=== PATIENT | female | born 1935 | race Caucasian/White ===

== ENCOUNTER 2021-02-28 20:35 | Emergency (ER) | payer MEDICARE ==
[2021-02-28 22:35] LABS: HEMOGLOBIN 13.7 gm/dl (12.3-15.3); RED BLOOD COUNT 4.12 M/UL (4.00-5.10); WHITE BLOOD COUNT 13.2 K/UL (4.5-11.0)
[2021-02-28] MEDS ORDERED: CEPHALEXIN500 M1 PO (23:52)
== END 2021-03-01 00:42 | disposition home or self-care (01) ==
LOC: ER1 20:35
PROVIDERS: Emergency Medicine
DX: S01.81XA Laceration without foreign body of other part of head, initial encounter (principal); W01.0XXA Fall on same level from slipping, tripping and stumbling without subsequent striking against object, initial encounter; Y92.009 Unspecified place in unspecified non-institutional (private) residence as the place of occurrence of the external cause
CPT/HCPCS: 12054; 70450; 72125; 80053; 85025; 85610; 85730; 99284